=== PATIENT | female | born 1980 | race American Indian/Alaskan Native ===

== ENCOUNTER 2018-12-17 07:28 | Emergency (ER) | payer BC, OTHER ==
[2018-12-17 10:12] LABS: Bilirubin,Urine NEG (Negative); Blood,Urine LG (Negative); Color,Urine Straw (Yellow); Protein,Urine <15 mg/dL mg/dL (Negative)
[2018-12-17 10:13] LABS: Mucus,Urine FEW /HPF; Urobilinogen,Urine < 2.0 mg/dL (<2.0)
[2018-12-17 10:18] LABS: HCG Qualitative,Urine Positive (Negative); RBC,Urine > 182.0 /HPF (0.0-6.0)
--- NOTE | 2018-12-17 11:55 | Ultrasound Report ---
FIRSTTRIMESTER OBSTETRIC ULTRASOUND HISTORY: patient with acute abdominal pain and vaginal bleeding COMPARISON: None. TECHNIQUE: Routine transabdominal and transvaginal OB ultrasound performed. FINDINGS: Uterus: Mildly enlarged measuring 13.1 x 6.0 x 6.8 cm. A 1.5 cm intramural fibroid is suggested in the anterior wall. A 1.7 cm fundal fibroid is identified. Gestational Sac: Well-defined oval shape and intrauterine in location. Yolk Sac: Normal in appearance. Fetus/Embryo: [place]-rump length of 0.84 cm, corresponding to an estimated gestational age of 6 weeks 6 days. Embryonic/ anatomy is too small for evaluation. Embryonic/ cardiac activity: 132bpm Placenta: Too small for evaluation. Amniotic fluid volume: Subjectively appropriate for gestational age. Ovaries: The right ovary is normal in size and appearance with normal blood flow, measuring 2.8 x 1. 2 x 3.2 cm. The left ovary is normal in size and appearance with normal blood flow, measuring 3.2 x 2.7 x 3.4 cm. Hypoechoic space-occupying mass in the left ovary with peripheral vascularity is most likely the corpus luteum or simple cyst. Additional findings: A 1.5 x 0.8 cm nabothian cyst containing debris is noted in the anterior cervix. IMPRESSION 1. Early live intrauterine as described above. No acute abnormality is detected.. Signer Name: Dominic Sandoval Jr, MD Signed: 12/17/2018 11:38 AM Workstation Name: [id number]
[2018-12-17 12:05] VITALS: BP 116/73
--- NOTE | 2018-12-17 12:39 | Emergency Department Report ---
ED Female HPI - General Chief complaint: Vaginal Bleeding Stated complaint: POSS MISCARRIAGE Time Seen by Provider: 12/17/18 09:39 Source: patient Mode of arrival: Ambulatory Limitations: No Limitations - History of Present Illness Initial comments: Patient is a 38-year-old [place] female who is presenting with heavy vaginal bleeding started this morning. Patient does have multiple clots that are coming out. Patient feels some pressure 1 clots or being expressed. Patient states she took a test at home which was positive however she does not know how far along she may be. Patient's last normal menstrual period was 11/03/2018. Patient has had no evidence of any syncope nausea vomiting diarrhea fevers or chills at this time. - Related Data Home Medications Medication Instructions Recorded Confirmed Last Taken Norgestimate-Ethinyl Estradiol 1 tab PO DAILY 08/22/14 08/22/14 08/21/14 19:00 [Ortho Tri-Cyclen 28 Tablet] Previous Rx's Medication Instructions Recorded Last Taken Type Acetaminophen/Codeine [Tylenol 1 tab PO Q6H PRN #20 tab 12/20/14 Unknown Rx /Codeine # 3 tab] Ibuprofen [Motrin 600 MG tab] 600 mg PO Q8H PRN #50 tablet 12/20/14 Unknown Rx Allergies Allergy/AdvReac Type Severity Reaction Status Date / Time cephalexin monohydrate Allergy Hives Verified 12/17/18 08:26 [From Keflex] ED Review of Systems ROS: Stated complaint: POSS MISCARRIAGE Other details as noted in HPI Comment: All other systems reviewed and negative ED Past Medical Hx - Past Medical History Previous Medical History?: No - Surgical History Additional Surgical History: D&C x 1. Left breast cyst removal- 1995. c- section x 1 - Social History Smoking Status: Never Smoker Substance Use Type: Alcohol - Medications Home Medications: Home Medications Medication Instructions Recorded Confirmed Last Taken Type Norgestimate-Ethinyl Estradiol 1 tab PO DAILY 08/22/14 08/22/14 08/21/14 19:00 History [Ortho Tri-Cyclen 28 Tablet] Acetaminophen/Codeine [Tylenol 1 tab PO Q6H PRN #20 tab 12/20/14 Unknown Rx /Codeine # 3 tab] Ibuprofen [Motrin 600 MG tab] 600 mg PO Q8H PRN #50 tablet 12/20/14 Unknown Rx ED Physical Exam - General Limitations: No Limitations General appearance: alert, in no apparent distress - Head Head exam: Present: atraumatic, normocephalic - Eye Eye exam: Present: normal appearance - ENT ENT exam: Present: mucous membranes moist - Neck Neck exam: Present: normal inspection - Respiratory Respiratory exam: Present: normal lung sounds bilaterally. Absent: respiratory distress, wheezes, rales, rhonchi - Cardiovascular Cardiovascular Exam: Present: regular rate, normal rhythm. Absent: systolic murmur, diastolic murmur, rubs, gallop - GI/Abdominal GI/Abdominal exam: Present: soft, normal bowel sounds. Absent: distended, tenderness, guarding, rebound, rigid - Extremities Exam Extremities exam: Present: normal inspection - Back Exam Back exam: Present: normal inspection - Neurological Exam Neurological exam: Present: alert, oriented X3 - Psychiatric Psychiatric exam: Present: normal affect, normal mood - Skin Skin exam: Present: warm, dry, intact, normal color. Absent: rash ED Course Vital Signs 12/17/18 12/17/18 12/17/18 08:36 09:33 12:05 Temperature 98.5 F 98.0 F Pulse Rate 80 82 Respiratory 20 18 14 Rate Blood Pressure 124/81 116/73 [Right] O2 Sat by Pulse 100 98 Oximetry ED Medical Decision Making - Lab Data Lab Results 12/17/18 12/17/18 Range/Units 08:38 09:33 HCG, Quant 34476 H (0-4) mIU/mL Urine Color Straw (Yellow) Urine Turbidity Clear (Clear) Urine pH 8.0 H (5.0-7.0) Ur Specific [place] 1.010 (1.003-1.030) Urine Protein <15 mg/dl (Negative) mg/dL Urine Glucose (UA) Neg (Negative) mg/dL Urine Ketones Neg (Negative) mg/dL Urine Blood Lg (Negative) Urine Nitrite Neg (Negative) Urine Bilirubin Neg (Negative) Urine Urobilinogen < 2.0 (<2.0) mg/dL Ur Leukocyte Esterase Neg (Negative) Urine WBC (Auto) 12.0 H (0.0-6.0) /HPF Urine RBC (Auto) > 182.0 (0.0-6.0) /HPF U Epithel Cells (Auto) 2.0 (0-13.0) /HPF Urine Mucus Few /HPF Urine HCG, Qual Positive A (Negative) Patient has a card from [facility] after donate blood and states her blood type is O+ - Radiology Data [facility] [address] [place] [id number] Ultrasound Report Signed Patient: ALLAN HERNANDEZ MR#: [id number] : 1980 Acct:[id number] Age/Sex: 38 / F ADM Date: 12/17/18 Loc: ED Attending Dr: Ordering Physician: DUNG ORDONEZ MD Date of Service: 12/17/18 Procedure(s): US OB transvaginal Accession Number(s): [id number] cc: DUNG ORDONEZ MD [facility] OBSTETR[facility] ULTRASOUND HISTORY: patient with acute abdominal pain and vaginal bleeding COMPARISON: None. TECHNIQUE: Routine transabdominal and transvaginal OB ultrasound performed. FINDINGS: Uterus: Mildly enlarged measuring 13.1 x 6.0 x 6.8 cm. A 1.5 cm intramural fibroid is suggested in the anterior wall. A 1.7 cm fundal fibroid is identified. Gestational Sac: Well-defined oval shape and intrauterine in location. Yolk Sac: Normal in appearance. Fetus/Embryo: [place]-rump length of 0.84 cm, corresponding to an estimated gestational age of 6 weeks 6 days. Embryonic/ anatomy is too small for evaluation. Embryonic/ cardiac activity: 132bpm Placenta: Too small for evaluation. Amniotic fluid volume: Subjectively appropriate for gestational age. Ovaries: The right ovary is normal in size and appearance with normal blood flow, measuring 2.8 x 1.2 x 3.2 cm. The left ovary is normal in size and appearance with normal blood flow, measuring 3.2 x 2.7 x 3.4 cm. Hypoechoic space-occupying mass in the left ovary with peripheral vascularity is most likely the corpus luteum or simple cyst. Additional findings: A 1.5 x 0.8 cm nabothian cyst containing debris is noted in the anterior cervix. IMPRESSION 1. Early live intrauterine as described above. No acute abnormality is detected.. Signer Name: Dominic Sandoval Jr, MD Signed: 12/17/2018 11:38 AM Workstation Name: [id number] Transcribed By: TTR Dictated By: DOMINIC SANDOVAL JR, MD Electronically Authenticated By: DOMINIC SANDOVAL JR, MD Signed Date/Time: 12/17/18 1138 - Medical Decision Making Patient is a 38-year-old female who is presenting with heavy vaginal bleeding. Patient does have a viable IUP present. Patient also has a fibroid uterus. Fiber uterus is likely the source of the patient's bleeding however she has been given information on threatened miscarriage. Patient will follow up with [facility]. Critical care attestation.: If time is entered above; I have spent that time in minutes in the direct care of this critically ill patient, excluding procedure time. ED Disposition Clinical Impression: Threatened miscarriage, Fibroid, uterine Disposition: DC-01 TO HOME OR SELFCARE Is pt being admited?: No Does the pt Need Aspirin: No Condition: Stable Instructions: Threatened Miscarriage (ED), Uterine Fibroids (ED) Referrals: MARY MURPHY PA [Primary Care Provider] - 3-5 Days Forms: Work/School Release Form(ED) Time of Disposition: 12:38
== END 2018-12-17 13:13 | disposition home or self-care (01) ==
LOC: ED 07:28
DX: O20.0 Threatened abortion (principal); O34.11 Maternal care for benign tumor of corpus uteri, first trimester; Z88.1 Allergy status to other antibiotic agents; Z79.1 Long term (current) use of non-steroidal anti-inflammatories (NSAID); Z3A.01 Less than 8 weeks gestation of pregnancy
CPT/HCPCS: 36415; 76801; 76817; 81001; 81025; 84702; 87086; 99284

== ENCOUNTER 2019-07-15 17:14 | Emergency (ER) | payer BC ==
[2019-07-15 17:58] VITALS: BP 128/80
--- NOTE | 2019-07-15 18:44 | Emergency Department Report ---
ED Lower Extremity HPI - General Chief Complaint: Fall Stated Complaint: FALL Time Seen by Provider: 07/15/19 18:28 Source: patient Mode of arrival: Ambulatory Limitations: No Limitations - History of Present Illness Initial Comments: 39-year-old -[place] female who presents to the emergency room stating that she injured her right knee status post fall at work approximately 08 30. Patient states that pain is worse when she tries to fully flex her knee. Patient reports she did take Advil she put ice on it and elevating it while at work. Patient reports she has been able to ambulate but with a limp. Complaint: knee injury -: This morning Time: 08:30 Injury: Knee: Right Type of Injury: blunt Place: work Severity scale (0 -10): 8 Improves With: immobilization Context: fall, direct blow Associated Symptoms: swelling Treatments Prior to Arrival: cold therapy, NSAIDS - Related Data Home Medications Medication Instructions Recorded Confirmed Last Taken Norgestimate-Ethinyl Estradiol 1 tab PO DAILY 08/22/14 08/22/14 08/21/14 19:00 [Ortho Tri-Cyclen 28 Tablet] Previous Rx's Medication Instructions Recorded Last Taken Type Acetaminophen/Codeine [Tylenol 1 tab PO Q6H PRN #20 tab 12/20/14 Unknown Rx /Codeine # 3 tab] Ibuprofen [Motrin 600 MG tab] 600 mg PO Q8H PRN #50 tablet 12/20/14 Unknown Rx Allergies Allergy/AdvReac Type Severity Reaction Status Date / Time cephalexin monohydrate Allergy Hives Verified 12/17/18 08:26 [From Keflex] ED Review of Systems ROS: Stated complaint: FALL Other details as noted in HPI Comment: All other systems reviewed and negative ED Past Medical Hx - Past Medical History Previous Medical History?: No - Surgical History Past Surgical History?: Yes Additional Surgical History: D&C x 1. Left breast cyst removal- 1995. c- section x 1 - Social History Smoking Status: Never Smoker Substance Use Type: None - Medications Home Medications: Home Medications Medication Instructions Recorded Confirmed Last Taken Type Norgestimate-Ethinyl Estradiol 1 tab PO DAILY 08/22/14 08/22/14 08/21/14 19:00 History [Ortho Tri-Cyclen 28 Tablet] Acetaminophen/Codeine [Tylenol 1 tab PO Q6H PRN #20 tab 12/20/14 Unknown Rx /Codeine # 3 tab] Ibuprofen [Motrin 600 MG tab] 600 mg PO Q8H PRN #50 tablet 12/20/14 Unknown Rx ED Physical Exam - General Limitations: No Limitations General appearance: alert, in no apparent distress - Head Head exam: Present: atraumatic, normocephalic - Eye Eye exam: Present: normal appearance - ENT ENT exam: Present: mucous membranes moist - Expanded Lower Extremity Exam Right Knee exam: Present: full ROM, tenderness, swelling - Neurological Exam Neurological exam: Present: alert, oriented X3 - Psychiatric Psychiatric exam: Present: normal affect, normal mood - Skin Skin exam: Present: warm, dry, intact, normal color. Absent: rash ED Course Vital Signs 07/15/19 17:57 Temperature 97.8 F Pulse Rate 87 Respiratory 18 Rate Blood Pressure 128/80 O2 Sat by Pulse 98 Oximetry ED Lower Extremity MDM - Medical Decision Making 39-year-old -[place] female who presents to the emergency room stating that she injured her right knee status post fall at work approximately 30. Patient states that pain is worse when she tries to fully flex her knee. Patient reports she did take Advil she put ice on it and elevating it while at work. Patient reports she has been able to ambulate but with a limp. Patient be placed in a knee immobilizer recommend Rice therapy and to follow-up with Dr. Piedra. Critical care attestation.: If time is entered above; I have spent that time in minutes in the direct care of this critically ill patient, excluding procedure time. ED Disposition Clinical Impression: Knee injury Qualifiers: Encounter type: initial encounter Laterality: right Qualified Code(s): S89.91XA - Unspecified injury of right lower leg, initial encounter Disposition: TO HOME OR SELFCARE Is pt being admited?: No Does the pt Need Aspirin: No Condition: Stable Instructions: Knee Immobilizer (ED), RICE Therapy (ED) Additional Instructions: Take [id number] Tylenol or ibuprofen for pain management. Continue with ice elevation. Referrals: EMIR PIEDRA MD [Staff Physician] - 3-5 Days Forms: Work/School Release Form(ED)
== END 2019-07-15 19:20 | disposition home or self-care (01) ==
LOC: ED 17:14
DX: S89.91XA Unspecified injury of right lower leg, initial encounter (principal); Z79.899 Other long term (current) drug therapy; Z88.8 Allergy status to other drugs, medicaments and biological substances; W18.39XA Other fall on same level, initial encounter; Y93.89 Activity, other specified; Y92.89 Other specified places as the place of occurrence of the external cause; Y99.8 Other external cause status
CPT/HCPCS: 99282